=== PATIENT | male | born 1980 | race Two or more races ===

== ENCOUNTER → 2021-01-17 | Day surgery (SDC) | payer BC ==
[~2021-01-17] VITALS: Ht 170.2 cm; Wt 106.0 kg
[~2021-01-17] MED LIST: CLONAZEPAM1 MG PO; IV RINGERS,LACTATED 1000ML 1,000 ML IV SCH; LIDOCAINE 2% PF 5 ML VIAL. ONE; LISI5TAB15 PO; OMEP20TA8 PO; PROPOFOL 10 MG/ML (20ML) VIAL. IV ONE
[2021-01-17 08:03] VITALS: BP 154/94
[2021-01-17 09:42] VITALS: BP 123/74
--- NOTE | 2021-01-18 17:06 | PATHOLOGY ---
[facility] Accession Number: [id number] . 01 Material submitted: . PART A: small bowel - SMALL BOWEL BIOPSY PART B: stomach - ANTRUM/BODY BIOPSY PART C: esophagus - DISTAL ESOPHAGUS BIOPSY. Modifiers: distal . 01 Clinical history: . ABDOMINAL PAIN ESOPHAGOGASTRODUODENOSCOPY . 02 Diagnosis: A. Small bowel biopsy: - Focal active duodenitis. . B. Gastric biopsies, gastric antrum and gastric body: - Chronic gastritis, mild to moderate. . C. Esophageal biopsies, distal esophagus: - Segments of gastric mucosa showing mild to moderate chronic inflammation. . (JPM:mml; 01/18/2021) [facility] 01/18/2021 1229 Local . 02 Comment: Sections of the small bowel biopsy reveals segments of duodenal mucosa showing congestion and focal acute and chronic inflammation within the lamina propria. Where best oriented, the mucosal villi show no sprue-like changes. The findings are indicative an active nonspecific duodenitis and may be seen with peptic disease, NSAIDs, or infection. . Sections of the gastric biopsy reveal segments of gastric body and antral/body transition mucosa showing congestion and mild to moderate chronic inflammation. A properly-controlled immunoperoxidase stain for Helicobacter is negative for Helicobacter organisms. . Sections of the distal esophageal biopsy reveal segments of gastric mucosa showing congestion and mild to moderate chronic inflammation. There is no squamous esophageal mucosa. There is no evidence of Lees's change, dysplasia or malignancy. . Special stain performed: Immunoperoxidase stain for Helicobacter on B1 . (JPM:mml; 01/18/2021) . 02 Electronically signed: . Jose Juan Howe MD, Pathologist NPI- [id number] . 01 Gross description: . A. The specimen is received in formalin, labeled "Bhupendra, Chuck, small bowel BX". Received are 3 segments of pale green tissue ranging in size from 0.2-0.3 cm in maximum dimensions. The specimen is entirely submitted in cassette A1. . B. The specimen is received in formalin, labeled "Chuck Huizar, antrum/body BX". Received are 4 segments of pale green tissue ranging in size from 0.2-0.4 cm in maximum dimensions. The specimen is entirely submitted in cassette B1. . C. The specimen is received in formalin, labeled "Chuck Huizar, distal esophagus BX". Received are 3 segments of pale green tissue ranging in size from 0.2-0.3 cm in maximum dimensions. The specimen is entirely submitted in cassette C1. ([facility]; 01/17/2021) NRI/NRI 01/17/2021 1851 Local . 02 Pathologist provided ICD-10: K29.80, K29.50, K20.90 . 02 CPT . 357685, 339987, 142886, [id number] Specimen Comment: A courtesy copy of this report has been sent to [phone], [phone] Specimen Comment: [id number] Specimen Comment: Report sent to / DR WESTON Specimen Comment: A duplicate report has been generated due to demographic updates. Performed at: 01 [facility] [address], [place] [id number] MD Maulik Canas MD Phone: [phone] Performed at: 02 [facility] [address] [place], [place] [id number] MD Jose Juan Howe MD Phone: [phone]
== END | disposition home or self-care (01) ==
LOC: ENDOS 07:35
PROVIDERS: ATTEND Internal Medicine Gastroenterology
DX: R10.84 Generalized abdominal pain (principal); K21.00 Gastro-esophageal reflux disease with esophagitis, without bleeding; K29.50 Unspecified chronic gastritis without bleeding; B96.81 Helicobacter pylori [H. pylori] as the cause of diseases classified elsewhere; R14.0 Abdominal distension (gaseous); K31.89 Other diseases of stomach and duodenum; I10 Essential (primary) hypertension; F41.9 Anxiety disorder, unspecified; Z79.899 Other long term (current) drug therapy; Z98.890 Other specified postprocedural states
CPT/HCPCS: 43239; J2704; 88305; 88342